=== PATIENT | male | born 1945 | race African-American/Black ===

== ENCOUNTER 2016-05-03 11:31 | Day surgery (SDC) | payer MEDICARE, OTHER ==
--- NOTE | 2016-04-28 12:33 | EKG REPORT ---
SEVERITY:- BORDERLINE ECG - SINUS RHYTHM BORDERLINE T ABNORMALITIES, INFERIOR LEADS : Confirmed by: Sharon Huynh 28-Apr-2016 12:32:01
[2016-04-28 12:38] LABS: ABSOLUTE EOSINOPHILS # (AUTO) 0.2 10^3/uL (0.0-0.6); ABSOLUTE LYMPHOCYTES (AUTO) 1.7 10^3/uL (0.5-4.7); ABSOLUTE MONOCYTES (AUTO) 0.3 10^3/uL (0.1-1.4); ABSOLUTE NEUT (AUTO) 1.7 10^3/uL (1.7-8.2); BASOPHILS % (AUTO) 0.7 % (0-2); HEMATOCRIT 41.6 % (37.9-51.0); HEMOGLOBIN 13.3 g/dL (13.5-17.0); HGB HCT DIFFERENCE -1.7; LYMPHOCYTES % (AUTO) 43.4 % (13-45); MEAN CORPUSCULAR HEMOGLOBIN 27.2 pg (27.0-33.4); MEAN CORPUSCULAR VOLUME 85 fl (80-97); MONOCYTES % (AUTO) 8.3 % (3-13); RED BLOOD COUNT 4.89 10^6/uL (4.35-5.55); RED CELL DISTRIBUTION WIDTH 14.7 % (11.5-14.0); SEGMENTED NEUTROPHILS % (AUTO) 42.6 % (42-78); WHITE BLOOD COUNT 3.9 10^3/uL (4.0-10.5)
[2016-04-28 13:15] LABS: ANION GAP 9 (5-19); BLOOD UREA NITROGEN 17 mg/dL (7-20); CALCIUM 9.8 mg/dL (8.4-10.2); CARBON DIOXIDE 29 mmol/L (22-30); CHLORIDE 102 mmol/L (98-107); CREATININE RESULT 1.02 mg/dL (0.52-1.25); GLUCOSE 106 mg/dL (75-110); POTASSIUM 4.3 mmol/L (3.6-5.0); SODIUM 139.9 mmol/L (137-145)
[~2016-05-03 11:31] MED LIST: LACTATED RINGERS 1000 ML IV PRN; LIDOCAINE 0.5% INJ-PF (5 MG/ML) 50 ML SDV SUBCUT PRN; LIDOCAINE 1% INJ-PF (10 MG/ML) 30 ML SDV ONE
[2016-05-03] MEDS ORDERED: MIDAZOLAM 2 MG/2 ML INJ ONE (12:38)
[2016-05-03] MEDS ORDERED: PROPOFOL INJ 200 MG/20 ML VIAL IV ONE (12:39)
[2016-05-03] MEDS ORDERED: CEFAZOLIN INJ 1 GM VIAL ONE (13:10)
[2016-05-03] MEDS ORDERED: MEPERIDINE HCL/PF INJ 25 MG/1 ML DISP.SYRIN IV PRN (15:36)
[2016-05-03] MEDS ORDERED: MORPHINE SULFATE 10 MG/ML INJ IV PRN (15:36)
[2016-05-03] MEDS ORDERED: PROMETHAZINE HCL INJ 25 MG/1 ML VIAL IV PRN ×2 (15:36)
[2016-05-03] MEDS ORDERED: OXYCODONE-ACETAMINOPHEN 5-325 MG TABLET PO PRN ×2 (15:36)
[2016-05-03] MEDS ORDERED: FENTANYL CITRATE INJ/PF 100 MCG/2 ML AMPUL IV PRN ×3 (15:36)
--- NOTE | 2016-05-03 16:06 | Operative Report ---
Operative Report DATE OF SURGERY: 05/03/16 PREOPERATIVE DIAGNOSIS: Recurrent left upper extremity lipoma POSTOPERATIVE DIAGNOSIS: same OPERATION: Expiration of left upper extremity excision of recurrent lipoma SURGEON: SHREE CHOW 1ST STORM DOOR MAKER: ROC BYRNE ANESTHESIA: GA TISSUE REMOVED OR ALTERED: The left arm lipoma COMPLICATIONS: none ESTIMATED BLOOD LOSS: scant INTRAOPERATIVE FINDINGS: See below PROCEDURE: Patient reviewed a preoperative holding area and left arm was marked. She is taken to the operating room where LMAC anesthesia was induced. The left arm was abducted, and the left arm was prepped and draped sterile fashion. Surgical plan and surgical time out conducted. Skin was anesthetized with quarter percent Marcaine. Approximately 4 cm long incision was made over the previous scar area and the underlying lipomatous mass was removed from the fossa in its entirety using a combination of sharp and blunt and electrocautery dissection. The median cubital vein was preserved. Was no evidence of malignancy. The specimen was approximately 6 cm in diameter by 8 cm diameter. His passed off to pathology for permanent analysis. Stasis was achieved. Surgicel was placed in the recesses of the wound, closed with 3-0 Vicryl and 4-0 Ethilon benzoin and Steri-Strips compression dressing applied. Postoperative procedure well, taken recovery in stable condition. MyThe physician sociology research assistant, Ms. Byrne, provided assistance during this case by: Assisting retracting tissue, instillation of local anesthesia and closure of skin incisions.
--- NOTE | 2016-05-03 16:10 | PDOC DISCHARGE SUMMARY ---
Discharge Summary (SDC) - Discharge Final Diagnosis: Recurrent lipoma left arm Date of Surgery: 05/03/16 Discharge Date: 05/03/16 Condition: Good Treatment or Instructions: Keep left arm elevated all times. Leave dressing on for 48 hours then removed. May shower in 48 hours. Decreased range of motion left arm until seen in the office, [place] [facility] in 1-2 weeks. Pain prescription on chart. Prescriptions: Oxycodone HCl/Acetaminophen [Percocet 5-325 mg Tablet] 1 - 2 tab PO ASDIR PRN # 15 tablet PRN Reason: Discharge Diet: As Tolerated Discharge Activity: Activity As Tolerated, No Lifting Over 10 Pounds Home Care Assistance: None Needed Report the Following to Your Physician Immediately: Shortness of Breath, Increase in Pain, Fever over 101 Degrees
[2016-05-03 18:06] VITALS: BP 122/64
== END 2016-05-03 18:04 | disposition home or self-care (01) ==
LOC: OROUT 11:31
PROVIDERS: ATTEND Surgery
PROC: 0HBEXZX Excision of Left Lower Arm Skin, External Approach, Diagnostic (ICD-10-PCS; principal; 2016-05-03 14:15)
DX: D17.22 Benign lipomatous neoplasm of skin and subcutaneous tissue of left arm (principal); E11.40 Type 2 diabetes mellitus with diabetic neuropathy, unspecified; I10 Essential (primary) hypertension; I87.2 Venous insufficiency (chronic) (peripheral); F43.10 Post-traumatic stress disorder, unspecified; Z85.038 Personal history of other malignant neoplasm of large intestine; Z88.8 Allergy status to other drugs, medicaments and biological substances; Z87.891 Personal history of nicotine dependence; Z79.899 Other long term (current) drug therapy; Z79.82 Long term (current) use of aspirin; Z90.49 Acquired absence of other specified parts of digestive tract
CPT/HCPCS: 93005; 36415; 82962; 85025; 80048; 88304 ×2; 71020; 93010; 11406; J2250; J0690; J3490; J2704; 400